=== PATIENT | female | born 1995 | race Two or more races ===

== ENCOUNTER 2021-09-25 07:13 | Day surgery (SDC) | payer OTHER ==
[~2021-09-25] VITALS: Ht 165.1 cm; Wt 68.9 kg
[~2021-09-25 07:13] MED LIST: ATIVAN0.5 M1 PO; DEPAKOTE ER250 MG PO; QUETIAPINE FUMA50 MG PO
[2021-09-25] MEDS ORDERED: PERCOCET 5-3251 EACH PO (13:35)
== END 2021-09-25 18:10 | disposition home or self-care (01) ==
LOC: CIR.AMB 07:13
PROVIDERS: ATTEND Surgery
DX: C73 Malignant neoplasm of thyroid gland (principal); Z20.822 Contact with and (suspected) exposure to COVID-19; Z88.0 Allergy status to penicillin